=== PATIENT | female | born 1970 | race Caucasian/White ===

== ENCOUNTER 2018-07-15 11:02 | Emergency (ER) | payer BC ==
[~2018-07-15] VITALS: Ht 157.5 cm; Wt 62.3 kg
[2018-07-15 11:12] VITALS: BP 127/68; TEMP 97.9
[2018-07-15] MEDS ORDERED: NORCO 325 MG-51 TAB PO (12:29)
[2018-07-15] MEDS ORDERED: FLEXERIL 1010 MG/TAB PO (12:29)
[2018-07-15 12:41] VITALS: PULSE 84
== END 2018-07-15 12:41 | disposition home or self-care (01) ==
LOC: COL.ER 11:02
DX: S16.1XXA Strain of muscle, fascia and tendon at neck level, initial encounter (principal); J44.9 Chronic obstructive pulmonary disease, unspecified; F17.210 Nicotine dependence, cigarettes, uncomplicated; Z88.2 Allergy status to sulfonamides
CPT/HCPCS: J1100; J1885